=== PATIENT | male | born 1975 | race Caucasian/White ===

== ENCOUNTER 2017-08-05 18:04 | Emergency (ER) | payer BC ==
[~2017-08-05] VITALS: Ht 172.7 cm; Wt 99.3 kg
[~2017-08-05 18:04] MED LIST: AMPHETAMINE SAL30 MG
[2017-08-05 18:59] LABS: HEMATOCRIT 46.1 % (38.0-50.0); HEMOGLOBIN 15.4 G/DL (12.5-16.6); MCH 28.5 PG (29.0-34.0); MCHC 33.4 G/DL (30.0-36.0); MCV 85.2 FL (86-99); PLATELET COUNT 246 K/uL (156-360); RBC DIS.WIDTH-CV 12.8 % (11.8-14.6); RBC DIS.WIDTH-SD 39.6 % (39-53); RED BLOOD COUNT 5.41 M/uL (4.00-5.50); WHITE BLOOD COUNT 11.6 K/uL (4.1-10.2)
[2017-08-05 19:13] LABS: APPEARANCE CLEAR ((CLEAR)); BILIRUBIN NEGATIVE; BLOOD SMALL; COLOR YELLOW ((YELLOW)); GLUCOSE (STRIP) NEGATIVE; KETONES NEGATIVE; LEUKOCYTES NEGATIVE; NITRITE NEGATIVE; PROTEIN (STRIP) NEGATIVE; SPECIFIC GRAVITY 1.016 (1.000-1.030); UROBILINOGEN 0.2 MG/DL (0.2-1.0)
[2017-08-05 19:26] LABS: ALBUMIN 4.5 g/dL (3.2-4.8)
[2017-08-05 19:27] LABS: CHLORIDE 102 mEq/L (99-109); POTASSIUM 3.7 mEq/L (3.7-5.4); SODIUM 139 mEq/L (136-147)
[2017-08-05 19:29] LABS: GLUCOSE 84 mg/dL (70-99); TOTAL PROTEIN 7.5 g/dL (6.4-8.3)
[2017-08-05 19:31] LABS: TOTAL BILIRUBIN 0.8 mg/dL (0.0-1.0)
[2017-08-05 19:32] LABS: ALKALINE PHOSPHATASE 86 IU/L (3-129)
[2017-08-05 19:33] LABS: GFR ESTIMATE (CALCULATED) > 59 mL/min/ (58.99-99999)
[2017-08-05 19:34] LABS: UREA NITROGEN (BUN) 18 mg/dL (9-23)
[2017-08-05 19:35] LABS: AST (GOT) 18 IU/L (2-34)
[2017-08-05 19:36] LABS: ALT (GPT) 50 IU/L (3-49); LIPASE 21 U/L (1.0-51.0)
[2017-08-05 19:37] LABS: BACTERIA NONE SEEN /HPF; EPITHELIAL CELLS RARE /HPF; MUCUS TRACE /LPF; UCUL ADDED? NO; WHITE BLOOD CELLS 0-5 /HPF (0-5)
[2017-08-05] MEDS ORDERED: FLAGYL500 MG PO (21:38)
[2017-08-05] MEDS ORDERED: CIPRO500 MG PO (21:38)
[2017-08-05] MEDS ORDERED: ZOFRAN4 MG PO (21:38)
[2017-08-05] MEDS ORDERED: PERCOCET 5/31 TABLET PO (21:39)
[2017-08-05 22:15] VITALS: BP 120/78
== END 2017-08-05 22:16 | disposition home or self-care (01) ==
LOC: EME 18:04
DX: K57.32 Diverticulitis of large intestine without perforation or abscess without bleeding (principal); R31.9 Hematuria, unspecified; Z87.891 Personal history of nicotine dependence
CPT/HCPCS: 74177; 80053; 81003; 83690; 85027; 99281; 99285; J2405; J3010; J7030

== ENCOUNTER 2017-08-19 18:02 | Emergency (ER) | payer BC ==
[~2017-08-19] VITALS: Ht 172.7 cm; Wt 96.3 kg
[~2017-08-19 18:02] MED LIST changes: +CIPRO500 MG PO; +FLAGYL500 MG PO; +PERCOCET 5/31 TABLET PO; +ZOFRAN4 MG PO
[2017-08-19 19:26] LABS: HEMATOCRIT 45.1 % (38.0-50.0); HEMOGLOBIN 15.1 G/DL (12.5-16.6); MCH 28.1 PG (29.0-34.0); MCHC 33.5 G/DL (30.0-36.0); PLATELET COUNT 243 K/uL (156-360); RBC DIS.WIDTH-CV 12.5 % (11.8-14.6); RBC DIS.WIDTH-SD 37.7 % (39-53); RED BLOOD COUNT 5.37 M/uL (4.00-5.50); WHITE BLOOD COUNT 7.2 K/uL (4.1-10.2)
[2017-08-19 19:34] LABS: APPEARANCE CLEAR ((CLEAR)); BILIRUBIN NEGATIVE; BLOOD NEGATIVE; COLOR COLORLESS ((YELLOW)); GLUCOSE (STRIP) NEGATIVE; KETONES 5; LEUKOCYTES NEGATIVE; NITRITE NEGATIVE; PROTEIN (STRIP) NEGATIVE; SPECIFIC GRAVITY 1.003 (1.000-1.030); UCUL ADDED? NO; UROBILINOGEN 0.2 MG/DL (0.2-1.0)
[2017-08-19 19:39] LABS: ALBUMIN 4.5 g/dL (3.2-4.8)
[2017-08-19 19:40] LABS: CHLORIDE 106 mEq/L (99-109); POTASSIUM 3.7 mEq/L (3.7-5.4); SODIUM 140 mEq/L (136-147)
[2017-08-19 19:42] LABS: GLUCOSE 84 mg/dL (70-99)
[2017-08-19 19:44] LABS: TOTAL BILIRUBIN 0.6 mg/dL (0.0-1.0)
[2017-08-19 19:45] LABS: ALKALINE PHOSPHATASE 55 IU/L (3-129)
[2017-08-19 19:46] LABS: GFR ESTIMATE (CALCULATED) > 59 mL/min/ (58.99-99999)
[2017-08-19 19:47] LABS: AST (GOT) 13 IU/L (2-34); UREA NITROGEN (BUN) 13 mg/dL (9-23)
[2017-08-19 19:49] LABS: ALT (GPT) 27 IU/L (3-49)
[2017-08-20 00:53] LABS: LIPASE 13 U/L (1.0-51.0)
[2017-08-20] MEDS ORDERED: FLAGYL500 MG PO (01:18)
[2017-08-20] MEDS ORDERED: CIPRO500 MG PO (01:18)
[2017-08-20 01:54] VITALS: BP 128/77
== END 2017-08-20 01:54 | disposition home or self-care (01) ==
LOC: EME 18:02
DX: K57.32 Diverticulitis of large intestine without perforation or abscess without bleeding (principal); Z87.891 Personal history of nicotine dependence
CPT/HCPCS: 74177; 80053; 81003; 83605; 83690; 85027; 99281; 99285; J2270; J2405; J7030

== ENCOUNTER 2017-08-28 22:44 | Emergency (ER) | payer BC ==
[~2017-08-28] VITALS: Ht 172.7 cm; Wt 93.6 kg
[2017-08-28 23:10] LABS: HEMATOCRIT 46.2 % (38.0-50.0); HEMOGLOBIN 15.5 G/DL (12.5-16.6); MCH 28.5 PG (29.0-34.0); MCHC 33.5 G/DL (30.0-36.0); MCV 85.1 FL (86-99); PLATELET COUNT 212 K/uL (156-360); RBC DIS.WIDTH-CV 13.1 % (11.8-14.6); RBC DIS.WIDTH-SD 40.5 % (39-53); RED BLOOD COUNT 5.43 M/uL (4.00-5.50); WHITE BLOOD COUNT 5.6 K/uL (4.1-10.2)
[2017-08-28 23:19] LABS: ALBUMIN 4.5 g/dL (3.2-4.8); CHLORIDE 108 mEq/L (99-109); POTASSIUM 3.4 mEq/L (3.7-5.4); SODIUM 143 mEq/L (136-147)
[2017-08-28 23:21] LABS: GLUCOSE 94 mg/dL (70-99); TOTAL PROTEIN 6.9 g/dL (6.4-8.3)
[2017-08-28 23:23] LABS: TOTAL BILIRUBIN 0.2 mg/dL (0.0-1.0)
[2017-08-28 23:25] LABS: ALKALINE PHOSPHATASE 54 IU/L (3-129); CREATININE 0.9 mg/dL (0.6-1.3); GFR ESTIMATE (CALCULATED) > 59 mL/min/ (58.99-99999)
[2017-08-28 23:26] LABS: UREA NITROGEN (BUN) 7 mg/dL (9-23)
[2017-08-28 23:27] LABS: AST (GOT) 12 IU/L (2-34)
[2017-08-28 23:28] LABS: ALT (GPT) 29 IU/L (3-49)
[2017-08-29] LABS: APPEARANCE CLEAR ((CLEAR)); BILIRUBIN NEGATIVE; BLOOD NEGATIVE; COLOR YELLOW ((YELLOW)); GLUCOSE (STRIP) NEGATIVE; KETONES NEGATIVE; LEUKOCYTES TRACE; NITRITE NEGATIVE; PROTEIN (STRIP) NEGATIVE; SPECIFIC GRAVITY 1.006 (1.000-1.030); UROBILINOGEN 0.2 MG/DL (0.2-1.0)
[2017-08-29 00:04] LABS: BACTERIA NONE SEEN /HPF; EPITHELIAL CELLS RARE /HPF; MUCUS 2+ /LPF; RED BLOOD CELLS 0-5 /HPF (0-5); UCUL ADDED? NO; WHITE BLOOD CELLS 0-5 /HPF (0-5)
[2017-08-29 00:09] LABS: TROP-I INTERPRETATION NEGATIVE; TROPONIN-I < 0.01 ng/mL (0.0-0.30)
[2017-08-29] MEDS ORDERED: ATIVAN1 MG PO (01:59)
[2017-08-29 02:05] VITALS: BP 102/63
== END 2017-08-29 02:07 | disposition home or self-care (01) ==
LOC: EME 22:44
DX: R10.32 Left lower quadrant pain (principal); F41.9 Anxiety disorder, unspecified; Z87.19 Personal history of other diseases of the digestive system; Z87.891 Personal history of nicotine dependence
CPT/HCPCS: 71046; 74177; 80053; 81003; 84484; 85027; 93005; 99281; 99284; J2060

== ENCOUNTER 2017-10-14 21:12 | Inpatient (IN) | payer BC ==
[~2017-10-14] VITALS: Ht 154.9 cm; Wt 83.9 kg
[~2017-10-14 21:12] MED LIST changes: +ATIVAN1 MG PO; +DIFLUCAN100 MG PO; +PROBIOTIC1 EAC5 PO; +ZOCOR10 MG PO
[2017-10-15 05:44] VITALS: BP 123/64
[2017-10-15 06:11] LABS: HEMATOCRIT 44.4 % (38.0-50.0); HEMOGLOBIN 15.4 G/DL (12.5-16.6); MCH 29.2 PG (29.0-34.0); MCHC 34.7 G/DL (30.0-36.0); MCV 84.3 FL (86-99); PLATELET COUNT 206 K/uL (156-360); RBC DIS.WIDTH-CV 12.9 % (11.8-14.6); RBC DIS.WIDTH-SD 39.2 % (39-53); RED BLOOD COUNT 5.27 M/uL (4.00-5.50)
[2017-10-15 06:36] LABS: CHLORIDE 105 MEQ/L (99-109); CREATININE 0.9 MG/DL (0.6-1.3); GFR ESTIMATE (CALCULATED) > 59 mL/min/ (58.99-99999); GLUCOSE 215 mg/dL (70-99); POTASSIUM 3.3 MEQ/L (3.7-5.4); SODIUM 138 MEQ/L (136-147); UREA NITROGEN (BUN) 8 mg/dL (9-23)
[2017-10-15 13:34] VITALS: BP 114/59
[2017-10-15 16:15] VITALS: BP 100/55
[2017-10-15 19:20] VITALS: BP 119/68
[2017-10-15 23:53] VITALS: BP 107/56
[2017-10-16] VITALS (7 sets, daily range): BP systolic 98–121; BP diastolic 55–66
[2017-10-16 07:00] LABS: MCH 28.3 PG (29.0-34.0); MCHC 32.7 G/DL (30.0-36.0); MCV 86.5 FL (86-99); PLATELET COUNT 194 K/uL (156-360); RBC DIS.WIDTH-CV 13.2 % (11.8-14.6); RBC DIS.WIDTH-SD 41.1 % (39-53); RED BLOOD COUNT 4.74 M/uL (4.00-5.50)
[2017-10-16 07:01] LABS: HEMOGLOBIN 13.4 G/DL (12.5-16.6)
[2017-10-16 07:17] LABS: CHLORIDE 106 MEQ/L (99-109); CREATININE 0.8 MG/DL (0.6-1.3); GFR ESTIMATE (CALCULATED) > 59 mL/min/ (58.99-99999); MAGNESIUM 2.1 mg/dl (1.3-2.7); PHOSPHORUS 3.7 mg/dL (2.5-4.9); SODIUM 141 MEQ/L (136-147); UREA NITROGEN (BUN) 10 mg/dL (9-23)
[2017-10-16 07:19] LABS: GLUCOSE 101 mg/dL (70-99); POTASSIUM 4.4 MEQ/L (3.7-5.4)
[2017-10-17 03:29] VITALS: BP 109/58
[2017-10-17 06:35] LABS: HEMATOCRIT 43.1 % (38.0-50.0); HEMOGLOBIN 13.9 G/DL (12.5-16.6); MCH 28.3 PG (29.0-34.0); MCHC 32.3 G/DL (30.0-36.0); MCV 87.6 FL (86-99); PLATELET COUNT 188 K/uL (156-360); RBC DIS.WIDTH-CV 13.3 % (11.8-14.6); RBC DIS.WIDTH-SD 42.8 % (39-53); RED BLOOD COUNT 4.92 M/uL (4.00-5.50); WHITE BLOOD COUNT 7.5 K/uL (4.1-10.2)
[2017-10-17 06:59] LABS: CHLORIDE 106 MEQ/L (99-109); CREATININE 0.8 MG/DL (0.6-1.3); GFR ESTIMATE (CALCULATED) > 59 mL/min/ (58.99-99999); GLUCOSE 91 mg/dL (70-99); PHOSPHORUS 2.7 mg/dL (2.5-4.9); POTASSIUM 4.2 MEQ/L (3.7-5.4); SODIUM 141 MEQ/L (136-147); UREA NITROGEN (BUN) 13 mg/dL (9-23)
[2017-10-17 08:03] VITALS: BP 110/55
[2017-10-17 11:38] VITALS: BP 121/67
[2017-10-17 16:10] VITALS: BP 122/57
[2017-10-17 19:09] VITALS: BP 127/71
[2017-10-17 23:34] VITALS: BP 125/63
[2017-10-18 03:42] VITALS: BP 118/58
[2017-10-18 05:55] LABS: HEMATOCRIT 38.9 % (38.0-50.0); HEMOGLOBIN 12.5 G/DL (12.5-16.6); MCH 27.7 PG (29.0-34.0); MCHC 32.1 G/DL (30.0-36.0); MCV 86.3 FL (86-99); PLATELET COUNT 163 K/uL (156-360); RBC DIS.WIDTH-CV 12.9 % (11.8-14.6); RBC DIS.WIDTH-SD 40.7 % (39-53); RED BLOOD COUNT 4.51 M/uL (4.00-5.50); WHITE BLOOD COUNT 5.8 K/uL (4.1-10.2)
[2017-10-18 06:17] LABS: CREATININE 0.7 MG/DL (0.6-1.3); GFR ESTIMATE (CALCULATED) > 59 mL/min/ (58.99-99999); GLUCOSE 83 mg/dL (70-99); MAGNESIUM 1.8 mg/dl (1.3-2.7); PHOSPHORUS 3.5 mg/dL (2.5-4.9); UREA NITROGEN (BUN) 10 mg/dL (9-23)
[2017-10-18 06:20] LABS: CHLORIDE 105 MEQ/L (99-109); POTASSIUM 3.7 MEQ/L (3.7-5.4); SODIUM 143 MEQ/L (136-147)
[2017-10-18 06:48] VITALS: BP 104/59
[2017-10-18 11:00] VITALS: BP 126/69
[2017-10-18 15:50] VITALS: BP 127/67
[2017-10-18 18:56] VITALS: BP 136/77
[2017-10-18 22:40] VITALS: BP 129/76
[2017-10-19 05:03] VITALS: BP 105/57
[2017-10-19 06:05] LABS: HEMATOCRIT 39.7 % (38.0-50.0); HEMOGLOBIN 13.1 G/DL (12.5-16.6); MCH 27.9 PG (29.0-34.0); MCV 84.5 FL (86-99); PLATELET COUNT 184 K/uL (156-360); RBC DIS.WIDTH-CV 12.5 % (11.8-14.6); RBC DIS.WIDTH-SD 37.8 % (39-53); WHITE BLOOD COUNT 5.7 K/uL (4.1-10.2)
[2017-10-19 07:54] VITALS: BP 115/57
[2017-10-19 11:45] VITALS: BP 92/51
[2017-10-19 16:16] VITALS: BP 125/86
[2017-10-19 23:58] VITALS: BP 107/59
[2017-10-20 05:00] VITALS: BP 105/61
[2017-10-20 07:40] VITALS: BP 100/57
[2017-10-20] MEDS ORDERED: FLUCONAZOLE100 MG PO (11:23)
[2017-10-20] MEDS ORDERED: MYCELEX10 MG MM (11:25)
[2017-10-20] MEDS ORDERED: HYDROCODON-ACE1 EAC7 PO (11:25)
[2017-10-20] MEDS ORDERED: LORAZEPAM0.5 MG PO (11:25)
[2017-10-20 11:30] VITALS: BP 117/63
[2017-10-20 16:07] VITALS: BP 107/60
== END 2017-10-20 17:31 | disposition home or self-care (01) | DRG 330 ==
LOC: ENRESERV 21:12 → 2SOUTH 10-15 05:27 → ENRESERV 10-15 08:18 → 2SOUTH 10-15 09:15 → 5EAST 10-15 12:38 → 2SOUTH 10-15 15:30 → 5EAST 10-20 17:31
PROVIDERS: Surgery
DX: K57.32 Diverticulitis of large intestine without perforation or abscess without bleeding (principal); B37.0 Candidal stomatitis; E78.00 Pure hypercholesterolemia, unspecified; F41.1 Generalized anxiety disorder; B37.81 Candidal esophagitis; F90.9 Attention-deficit hyperactivity disorder, unspecified type; F41.0 Panic disorder [episodic paroxysmal anxiety]; K59.00 Constipation, unspecified
CPT/HCPCS: 80048; 83735; 84100; 85027; 86850; 86900; 86901; 86920; 88302; 88305; 88307; 94799; J0330; J0461; J1100; J1170; J1335; J1450; J1650; J1885; J2001; J2250; J2405; J2710; J3010; J3475; J3480; J7050; J7120; S0020

== ENCOUNTER 2017-12-19 22:03 | Emergency (ER) | payer BC ==
[~2017-12-19] VITALS: Ht 172.7 cm; Wt 92.3 kg
[~2017-12-19 22:03] MED LIST changes: +FLUCONAZOLE100 MG PO; +HYDROCODON-ACE1 EAC7 PO; +LORAZEPAM0.5 MG PO; +MYCELEX10 MG MM
[2017-12-19 22:33] LABS: HEMATOCRIT 43.6 % (38.0-50.0); HEMOGLOBIN 15.1 G/DL (12.5-16.6); MCH 29.2 PG (29.0-34.0); MCHC 34.6 G/DL (30.0-36.0); MCV 84.3 FL (86-99); PLATELET COUNT 226 K/uL (156-360); RBC DIS.WIDTH-CV 12.8 % (11.8-14.6); RBC DIS.WIDTH-SD 39.4 % (39-53); RED BLOOD COUNT 5.17 M/uL (4.00-5.50); WHITE BLOOD COUNT 6.8 K/uL (4.1-10.2)
[2017-12-19 22:44] LABS: ALBUMIN 4.6 g/dL (3.2-4.8); CHLORIDE 105 mEq/L (99-109); POTASSIUM 3.9 mEq/L (3.7-5.4); SODIUM 140 mEq/L (136-147)
[2017-12-19 22:47] LABS: GLUCOSE 92 mg/dL (70-99); TOTAL PROTEIN 7.2 g/dL (6.4-8.3)
[2017-12-19 22:49] LABS: TOTAL BILIRUBIN 0.5 mg/dL (0.0-1.0)
[2017-12-19 22:50] LABS: ALKALINE PHOSPHATASE 73 IU/L (3-129); GFR ESTIMATE (CALCULATED) > 59 mL/min/ (58.99-99999)
[2017-12-19 22:50] LABS: APPEARANCE CLEAR ((CLEAR)); BILIRUBIN NEGATIVE; BLOOD NEGATIVE; COLOR YELLOW ((YELLOW)); GLUCOSE (STRIP) NEGATIVE; KETONES NEGATIVE; LEUKOCYTES NEGATIVE; NITRITE NEGATIVE; PROTEIN (STRIP) NEGATIVE; SPECIFIC GRAVITY 1.013 (1.000-1.030); UCUL ADDED? NO; UROBILINOGEN 0.2 MG/DL (0.2-1.0)
[2017-12-19 22:51] LABS: UREA NITROGEN (BUN) 21 mg/dL (9-23)
[2017-12-19 22:52] LABS: AST (GOT) 9 IU/L (2-34)
[2017-12-19 22:53] LABS: ALT (GPT) 23 IU/L (3-49)
[2017-12-19 22:54] LABS: LIPASE 27 U/L (1.0-51.0)
[2017-12-20 00:27] LABS: AMPHETAMINE NEGATIVE (500 ng/mL); BARBITURATES NEGATIVE (200 ng/mL); BENZODIAZEPINES PRESUMPTIVE POSITIVE (150 ng/mL); BUPRENORPHINE NEGATIVE (10 ng/mL); COCAINE NEGATIVE (150 ng/mL); METHADONE NEGATIVE (200 ng/mL); METHAMPHETAMINE NEGATIVE (500 ng/mL); OPIATES (MORPHINE) NEGATIVE (100 ng/mL); OXYCODONE NEGATIVE (100 ng/mL); PHENCYCLIDINE NEGATIVE (25 ng/mL); PROPOXYPHENE NEGATIVE (300 ng/mL); TRICYCLIC ANTIDEPRESSANTS NEGATIVE (300 ng/mL)
[2017-12-20] MEDS ORDERED: BENTYL20 MG PO (01:19)
[2017-12-20] MEDS ORDERED: ANUSOL HC,ANUCO25 MG PR (01:19)
[2017-12-20] MEDS ORDERED: SIMETHICONE180 MG PO (01:45)
[2017-12-20 02:30] VITALS: BP 152/89
[2017-12-20 02:55] LABS: BENZODIAZEPINES, URINE SCREEN Negative (200 ng/mL)
[2017-12-20 03:38] LABS: THC CANNABINOIDS NEGATIVE (50 ng/mL)
[2017-12-20 15:48] LABS: STOOL OCCULT BLD 1ST SPECIMEN POSITIVE
== END 2017-12-20 02:31 | disposition home or self-care (01) ==
LOC: EME 22:03
PROVIDERS: Physician Assistant
DX: G89.18 Other acute postprocedural pain (principal); R10.30 Lower abdominal pain, unspecified; K92.1 Melena; R03.0 Elevated blood-pressure reading, without diagnosis of hypertension; Z98.890 Other specified postprocedural states; Z87.891 Personal history of nicotine dependence
CPT/HCPCS: 74022; 80053; 81003; 82272; 83690; 84999; 85027; 99281; 99285